=== PATIENT | male | born 1930 | race Caucasian/White ===

== ENCOUNTER 2018-09-18 17:37 | Emergency (ER) | payer MEDICARE, MEDICAID ==
[2018-09-18 18:42] LABS: ADD MAN DIFF? NO
[2018-09-18 18:44] LABS: BASOPHILS % 0.7 % (0.0-2.0); EOSINOPHILS # 0.3 10^3/ul (0.0-0.5); EOSINOPHILS % 5.4 % (0.0-7.0); HEMATOCRIT 35.7 % (42.0-52.0); HEMOGLOBIN 10.9 g/dl (14.0-18.0); LYMPHOCYTES # 0.7 10^3/ul (0.8-2.9); LYMPHOCYTES % 12.1 % (15.0-51.0); MEAN CORPUSCULAR HEMOGLOBIN 27.7 pg (29.0-33.0); MEAN CORPUSCULAR HGB CONC 30.5 g/dl (32.0-37.0); MEAN CORPUSCULAR VOLUME 90.6 fl (82.0-101.0); MEAN PLATELET VOLUME 9.3 fl (7.4-10.4); MONOCYTE # 0.3 10^3/ul (0.3-0.9); MONOCYTES % 5.4 % (0.0-11.0); NEUTROPHIL # 4.4 10^3/ul (1.6-7.5); NEUTROPHILS % 75.9 % (39.0-77.0); PLATELET COUNT 159 10^3/UL (140-415); RED BLOOD COUNT 3.94 10^6/ul (4.70-6.10); RED CELL DISTRIBUTION WIDTH 15.1 % (11.5-14.5)
[2018-09-18 18:44] LABS: WHITE BLOOD COUNT 5.8 10^3/ul (4.8-10.8)
[2018-09-18] MEDS: ALBUTEROL 0.083% (NEB) 2.5 MG/3 ML AMP NEB (18:49)
[2018-09-18] MEDS: IPRATROPIUM (NEB) 0.5 MG/2.5 ML AMP NEB (18:49)
[2018-09-18 18:56] LABS: INR 1.02; PROTIME 13.5 Sec (11.9-14.9); PT RATIO 1.1
[2018-09-18 18:57] LABS: PARTIAL THROMBOPLASTIN TIME 32.3 Sec (23.0-35.0)
[2018-09-18 19:00] LABS: ALANINE AMINOTRANSFERASE 14 IU/L (13-69); ALBUMIN 4.1 g/dl (3.3-4.9); ALBUMIN/GLOBULIN RATIO 1.32; ALKALINE PHOSPHATASE 91 IU/L (42-121); ANION GAP 7 (5-13); ASPARTATE AMINO TRANSFERASE 30 IU/L (15-46); BILIRUBIN,INDIRECT 0.2 mg/dl (0-1.1); BILIRUBIN,TOTAL 0.2 mg/dl (0.2-1.3); BLOOD UREA NITROGEN 30 mg/dl (7-20); CALCIUM 8.5 mg/dl (8.4-10.2); CARBON DIOXIDE 29 mmol/L (21-31); CHLORIDE 108 mmol/L (97-110); CREATINE KINASE 162 IU/L (23-200); CREATININE 1.78 mg/dl (0.61-1.24); GLUCOSE 107 mg/dl (70-220); POTASSIUM 4.5 mmol/L (3.5-5.1); SODIUM 144 mmol/L (135-144); TOTAL PROTEIN 7.2 g/dl (6.1-8.1)
[2018-09-18] MEDS: BENZONATATE 100 MG CAP PO (19:05)
[2018-09-18 19:12] LABS: B-TYPE NATRIURETIC PEPTIDE 822 PG/ML (0-450); CK INDEX 1.7; TROPONIN-I < 0.012 ng/ml (0.000-0.120)
[2018-09-18 19:16] LABS: CK-MB 2.69 ng/ml (0.0-2.4)
== END 2018-09-18 20:35 | disposition home or self-care (01) ==
LOC: E/R 17:37
DX: J40 Bronchitis, not specified as acute or chronic (principal); R07.9 Chest pain, unspecified
CPT/HCPCS: 71045; 80053; 82550; 82553; 83880; 84484; 85025; 85610; 85730; 87400; 93005; 94664; 99285-25

== ENCOUNTER 2018-09-24 12:28 | Emergency (ER) | payer MEDICARE, MEDICAID ==
[2018-09-24] MEDS: ALBUTEROL 0.5% (NEB) 2.5 MG/0.5 ML AMP NEB (13:05)
[2018-09-24] MEDS: IPRATROPIUM (NEB) 0.5 MG/2.5 ML AMP NEB (13:06)
== END 2018-09-24 15:37 | disposition home or self-care (01) ==
LOC: E/R 15:37
DX: R05 Cough (principal)
CPT/HCPCS: 94644; 99284-25

== ENCOUNTER 2018-10-06 18:22 | Emergency (ER) | payer MEDICARE, MEDICAID | END 2018-10-06 23:15 | disposition home or self-care (01) | LOC: E/R 23:15 | DX: R51 Headache (principal); R40.2141 Coma scale, eyes open, spontaneous, in the field [EMT or ambulance]; R40.2362 Coma scale, best motor response, obeys commands, at arrival to emergency department; R40.2252 Coma scale, best verbal response, oriented, at arrival to emergency department | CPT/HCPCS: 70450; 93005; 99284-25 ==